=== PATIENT | male | born 1990 | race Two or more races ===

== ENCOUNTER 2018-05-22 21:31 | Emergency (ER) | payer SELFPAY ==
[2018-05-22 21:38] VITALS: BP 140/85
[2018-05-22] MEDS ORDERED: LIDOCAINE 1%/EPINEPHRINE INJ 20 ML VIAL INJ ONE (22:19)
[2018-05-22] MEDS ORDERED: DIPH/PERTUSS(ACELL)/TETANUS VAC/PF 0.5 ML SYR (>=10YO) IM ONE (22:24)
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
== END 2018-05-22 23:05 | disposition home or self-care (01) ==
LOC: ER 21:31
DX: S61.412A Laceration without foreign body of left hand, initial encounter (principal); W22.09XA Striking against other stationary object, initial encounter; Y93.E9 Activity, other interior property and clothing maintenance; Y92.009 Unspecified place in unspecified non-institutional (private) residence as the place of occurrence of the external cause; F17.200 Nicotine dependence, unspecified, uncomplicated
CPT/HCPCS: 99282; 90471; 90715; 12001; J3490